=== PATIENT | male | born 1945 | race Caucasian/White ===

== ENCOUNTER 2016-04-13 12:14 | Day surgery (SDC) | payer MEDICARE ==
[2016-04-13] MEDS ORDERED: LACTATED RINGERS 1,000 ML ONE (12:41)
[2016-04-13] MEDS ORDERED: IV START KIT ONE (12:42)
[2016-04-13] MEDS ORDERED: PROPOFOL 60 ML IV ONE (14:09)
[2016-04-13] MEDS ORDERED: LACTATED RINGERS 1,000 ML IV SCH (14:45)
--- NOTE | 2016-04-15 10:46 | SURGPATH ---
[facility] [address] [place] [id number] Patient Name: DEE DEE ELKINS MR#: [id number] : 1945 Gender: M Specimen #: [id number] Collected: 04/13/2016 Received: 04/14/2016 Reported: 04/15/2016 Submitting Phys: CHRISTIAN PARR Copy To Phys: BRIELLE JENKINS [facility] [place] Clinical History / Pre-Operative Diagnosis: ABDOMINAL PAIN; CHANGE IN BOWEL PATTERN; FAMILY HISTORY OF COLON CA Specimen Source / Surgical Procedure Performed: ASCENDING COLON POLYP X2 Interpretation: ASCENDING COLON, POLYP X2, BIOPSY: - TUBULAR ADENOMA X2 Electronically Signed Out Chuyita Hyde M.D. Gross Description: The specimen is received in a formalin filled container labeled with the patient's name and "ascending colon polyp x2". Three puentes biopsies are 0.3, 0.4 and 0.4 cm. Totally embedded in one cassette. Lance Aragon, PArielAAriel Microscopic Description: Sections show fragments of adenomatous colonic mucosa without high grade dysplasia. 1: 79209 D12.2
== END 2016-04-13 15:20 | disposition home or self-care (01) ==
LOC: SDC 12:14
PROVIDERS: ATTEND Surgery
PROC: 0DBK8ZX Excision of Ascending Colon, Via Natural or Artificial Opening Endoscopic, Diagnostic (ICD-10-PCS; principal; 2016-04-13)
PROC: 0DBK8ZX Excision of Ascending Colon, Via Natural or Artificial Opening Endoscopic, Diagnostic (ICD-10-PCS; 2016-04-13)
DX: K57.30 Diverticulosis of large intestine without perforation or abscess without bleeding (principal); D12.2 Benign neoplasm of ascending colon; K64.4 Residual hemorrhoidal skin tags; Z80.0 Family history of malignant neoplasm of digestive organs; D48.1 Neoplasm of uncertain behavior of connective and other soft tissue; Z88.1 Allergy status to other antibiotic agents

== ENCOUNTER 2016-05-10 10:50 | Day surgery (SDC) | payer MEDICARE ==
[2016-05-10] MEDS ORDERED: CEFAZOLIN SODIUM 2 GRAM PREMIX 100 ML IV PRN (11:00)
[2016-05-10] MEDS ORDERED: LACTATED RINGERS 1,000 ML ONE (11:11)
[2016-05-10] MEDS ORDERED: IV START KIT ONE (11:12)
[2016-05-10] MEDS ORDERED: CEFTRIAXONE 2 GRAM DUPLEX 50 ML IV PRN (11:58)
[2016-05-10] MEDS ORDERED: BUPIVACAINE 0.5% (PRES FREE) 30 ML VIAL ONE (12:15)
[2016-05-10] MEDS ORDERED: CEFAZOLIN SODIUM 2 GRAM DUPLEX 50 ML IV SCH (12:15)
[2016-05-10] MEDS ORDERED: LIDOCAINE 1%/EPI 1:100,000 (MULTI DOSE) 30 ML VIAL ONE (12:35)
[2016-05-10] MEDS ORDERED: BUPIVACAINE 0.5% W/EPI SDV 30 ML VIAL ONE (12:35)
[2016-05-10] MEDS ORDERED: FENTANYL 100 MCG/2 ML VIAL ONE (12:50)
[2016-05-10] MEDS ORDERED: SUCCINYLCHOLINE CHL 20 MG/ML DOSE ONE (13:31)
[2016-05-10] MEDS ORDERED: PROPOFOL 20 ML IV ONE (13:31)
[2016-05-10] MEDS ORDERED: EPHEDRINE SULFATE UD SYR 25 MG 25 MG/5 ML SYRINGE IV ONE (13:38)
[2016-05-10] MEDS ORDERED: PROMETHAZINE HCL 25 MG/ML VIAL IM PRN (13:58)
[2016-05-10] MEDS ORDERED: ONDANSETRON 4 MG/2ML 2 ML VIAL IV PRN ×2 (13:58→14:46)
[2016-05-10] MEDS ORDERED: MORPHINE SULFATE 4 MG/ML SYRINGE IV PRN (13:58)
[2016-05-10] MEDS ORDERED: HYDRALAZINE HCL 20 MG/1 ML VIAL IV PRN (13:58)
[2016-05-10] MEDS ORDERED: ATROPINE SULFATE 0.4 MG/1 ML VIAL IV PRN (13:58)
[2016-05-10] MEDS ORDERED: LACTATED RINGERS 1,000 ML IV SCH (14:00)
[2016-05-10] MEDS ORDERED: PHENYLEPHRINE 10 MG/1 ML (1%) VIAL ONE (14:03)
[2016-05-10] MEDS ORDERED: GLYCOPYRROLATE 0.2 MG/ML 1ML VIAL ONE (14:03)
[2016-05-10] MEDS ORDERED: METOCLOPRAMIDE HCL 5 MG/ML 2ML VIAL ONE (14:03)
[2016-05-10] MEDS ORDERED: HYDROMORPHONE HCL 1 MG/ML SYRINGE IV PRN (14:46)
[2016-05-10] MEDS ORDERED: KETOROLAC TROMETHAMINE 30 MG/ML 1 ML VIAL IV PRN (14:46)
[2016-05-10] MEDS ORDERED: OXYCODONE HCL 5 MG TABLET PO PRN (14:46)
--- NOTE | 2016-05-10 16:14 | OP ---
DEE DEE ELKINS [id number] DATE OF OPERATION: May 10, 2016 PREOPERATIVE DIAGNOSIS: Intramuscular mass left trapezius muscle. POSTOPERATIVE DIAGNOSIS: Intramuscular mass left trapezius muscle. PROCEDURE: EXCISION OF INTRAMUSCULAR MASS LEFT TRAPEZIUS. SURGEON: Santy Stauffer M.D. CONCILIATOR: Siva Medellin ANESTHESIA: General anesthesia by Iris Levy C.R.N.A. INDICATIONS: This is a 70-year-old male who has a mass in the left posterior neck. Ultrasound measured this at 8.5 cm. An MRI shows no clear signs of malignancy. It has previously been biopsied with benign result. He presents for elective excision. DESCRIPTION: With informed consent he was taken to the operating room where general anesthesia was administered in his bed. He was then placed in a prone position with bumps more under his left than his right so that he was at an angle. We gently turned the head to the right. We used some tape to pull down the shoulder on the left. With that, it was prepped and draped in a sterile fashion. Some Marcaine with epinephrine was infiltrated. I did use one of his natural skin creases that was slightly oblique to the orientation of the lipoma. This was incised with a knife. Electrocautery was used to divide the subcutaneous fat. We entered into the muscles fairly easily. There was minimal fascia on top of the muscle. The lipoma was easily identified. It easily dissected free inferior and lateral. It was more difficult up superior and anteriorly. I had to dissect some muscle away from that area. Very limited electrocautery was used. Eventually we excised the palpable abnormality. I did label it with a short stitch superior, long stitch lateral and a double stitch deep. That was sent off to pathology. The wound was irrigated. We appeared to have adequate hemostasis. The fascia upon top of the muscle was reapproximated with some interrupted #3-0 Vicryl. The skin was closed with a running subcuticular #4-0 Monocryl. Mastisol and SteriStrips were placed. Sterile dressings were applied. He tolerated the procedure and was taken to the recovery room in stable condition. Note was made that needle, instrument and lap counts were reported as correct at time of closure. Cc: Gaurang Ochoa M.D.
--- NOTE | 2016-05-12 12:41 | SURGPATH ---
[facility] [address] [place] [id number] Patient Name: DEE DEE ELKINS MR#: [id number] : 1945 Gender: M Specimen #: [id number] Collected: 05/10/2016 Received: 05/11/2016 Reported: 05/12/2016 Submitting Phys: CHRISTIAN PARR Copy To Phys: BRIELLE JENKINS [facility] Clinical History / Pre-Operative Diagnosis: Intramuscular mass of left neck Specimen Source / Surgical Procedure Performed: Intramuscular mass left trapezius muscle Interpretation: INTRAMUSCULAR MASS, LEFT NECK, EXCISION: - MATURE ADIPOSE TISSUE CONSISTENT WITH LIPOMA Electronically Signed Out Chandu Garcia M.D. Gross Description: The specimen is received in formalin labeled with the patient's name and "left trapezius intramuscular mass". The specimen consists of a 7.0 x 4.0 x 2.5 cm oriented smoothly lobulated portion of yellow fatty tissue consistent with a lipoma. There is a short superior stitch, a long lateral stitch, and a double deep stitch. The specimen is inked as follows; deep-black, superficial-orange, superior-blue, inferior-green, lateral-yellow, medial-red. The specimen is sectioned perpendicular to the long superior-inferior axis. There is possible fat necrosis at the inferior aspect. A-E. pharmaceutical specialty representative from superior to inferior DARIEN Berry Microscopic Description: Sections reveal mature lobulated adipose tissue with focal fibrovascular septae and skeletal muscle. 1: 40458 D17.1
== END 2016-05-10 19:54 | disposition home or self-care (01) ==
LOC: SDC 10:50
PROVIDERS: ATTEND Surgery
PROC: 0KB30ZZ Excision of Left Neck Muscle, Open Approach (ICD-10-PCS; principal; 2016-05-10)
DX: D17.9 Benign lipomatous neoplasm, unspecified (principal); K21.9 Gastro-esophageal reflux disease without esophagitis; E03.9 Hypothyroidism, unspecified; Z88.1 Allergy status to other antibiotic agents; Z80.0 Family history of malignant neoplasm of digestive organs; Z86.010 Personal history of colon polyps; Z80.3 Family history of malignant neoplasm of breast
CPT/HCPCS: 21554; J3010; J0690; J2370; J2765; J7120